=== PATIENT | male | born 1980 | race Caucasian/White ===

== ENCOUNTER 2017-02-13 21:00 | Emergency (ER) | payer OTHER ==
[~2017-02-13] VITALS: Ht 175.3 cm; Wt 86.2 kg
[2017-02-13 21:17] VITALS: BP 131/91
== END 2017-02-14 02:33 | disposition left against medical advice (07) ==
LOC: ER 21:15
DX: R51 Headache (principal); Z53.21 Procedure and treatment not carried out due to patient leaving prior to being seen by health care provider